=== PATIENT | female | born 1990 ===

== ENCOUNTER 2018-05-29 06:10 | Inpatient (IN) | payer OTHER ==
[~2018-05-29] VITALS: Ht 162.6 cm; Wt 102.1 kg
--- NOTE | 2018-05-29 06:14 | History & Physical ---
General Information and HPI MD Statement: I have seen and personally examined LEILANI RIZVI and documented this H&P. The patient is a 28 year old female at [39] weeks and 6[] days gestation who presented with a chief complaint of [plan to deliver by primary C/S.]. 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 Her testing has resulted in 2-3 NSTs that were nonreactive and one had 2 spontaneous variable decelerations. After discussing options of continued observation with twice weekly testing, labor induction with a floating vertex, or delivery by primary C/S, we decided on the last option. The risks, benefits, purpose, and alternatives of delivery by primary C/S were d/w the patient and her , questions answered, and informed consent was obtained. Allergies/Medications Allergies: Coded Allergies: No Known Allergies (05/29/18) Home Med list Pnv#67/Iron Ps/FA Cmb#1/Dha (Vitafol Ultra Softgel) 29 MG IRON-1 MG-200 MG CAPSULE VITAMIN SUPPORT (Reported) Compliance With Home Meds: GOOD Past History paper box cutter History : 1 Para: 0 Last Menstrual Period: 08-23-2017 Estimated Delivery Date: 05-30-18 Past paper box cutter History: none Medical History Blood Transfusion Hx: No Neurological: NONE EENT: NONE Cardiovascular: NONE Respiratory: NONE Gastrointestinal: NONE Hepatic: NONE Renal: kidney reflux disease, repaired in childhood Musculoskeletal: NONE Psychiatric: NONE Endocrine: obesity Blood Disorders: anemia Cancer(s): NONE COMPUTER TAPE LIBRARIAN/Reproductive: HPV Surgical History Pertinent Surgical History: kidney reflux disease correction 1997-age 8 Past Family/Social History Psychosocial History Where do you live? Home Who Do You Live With? spouse Primary Language: Italian Smoking Status: Never Smoked ETOH Use: denies use Illicit Drug Use: denies illicit drug use Living Will? unknown Power of Med Surg Rn/HCP? unknown Employment History Employment Employed Review of Systems Review of Systems Constitutional: Reports: no symptoms. EENTM: Reports: nasal congestion. Cardiovascular: Reports: peripheral edema. Respiratory: Reports: no symptoms. GI: Reports: constipation, distention, nausea. Genitourinary: Reports: frequency. Musculoskeletal: Reports: back pain. Skin: Reports: rash (on tops of feet). Neurological/Psychological: Reports: no symptoms. Hematologic/Endocrine: Reports: no symptoms. Immunologic/Allergic: Reports: no symptoms. All Other Systems: Reviewed and Negative Date of LMP: 08/23/17 Post Menopausal: No Mammogram Testing Status: Test never done Date of Last Pap Smear: 10/28/17 Colonoscopy Testing Status: Test never done Exam & Diagnostic Data Obstetric Exam Wgt Gained During : 46 lbs Pelvimetry: narrow pelvis Dilation (cm): 0 Effacement (%): 30 Station: -4 Membranes: intact Fluid: unknown Fundal Height (cm): 40 Multiple Gestation? No Contractions: rare Infant #1 - FHR Baseline: 140 Category: 1 Estimated Weight: 8.5 lbs Presentation: VTX Patient for Induction? No Rollins Score Rollins Score Response Value Cervix Position: posterior 0 Cervix Consistency: firm 0 Cervix Effacement: 0-30% 0 Cervix Dilation: closed 0 Cervix Station: -3 0 Total 0 Physical Exam General Appearance Alert, Oriented X3, Cooperative, No Acute Distress Skin No Rashes, No Significant Lesion HEENT Mucous Membr. moist/pink Neck Supple, No thryomegaly Lymphatic Cervical nl Cardiovascular Regular Rate Lungs Normal Air Movement Abdomen Normal Bowel Sounds, Soft, No Tenderness, No Hepatospenomegaly Neurological Normal Gait, Normal Speech, Normal Tone, Sensation Intact, Reflexes 2+ Extremities pedal edema 2+ bilat. Vascular Normal Pulses Breasts Breast appear nl Reproductive (FEMALE) Normal female genitalia Pelvic (FEMALE) Appearance Normal Rectal No Hemorrhoids Labs Blood Type & Rh: O+ Antibody Screen: neg Hct/Hgb & Platelets #1: 11.9/37%, 290K Hct/Hgb & Platelets #2: 10.9/36%, 295K Rubella: immune VDRL #1: NR VDRL #2: NR HbsAg: NR HIV #1: NR HIV #2 NR 1 Hr P Group B Strep: POS Initial Ultrasound: 10/29/17 - 9w3d Anatomy Ultrasound: 01/13/18 - 20w3d, normal anatomy, proportional growth Ultrasound for EFW: 05/05/18 - 36w3d - EFW 64%, ELDER 17 Genetic Testing: normal 1st TMS, normal Counsyl Prelude MSAFP declined Last 24 Hrs of Labs/[place]: Laboratory Tests 05/30/18 0640: CBC w Diff NO MAN DIFF REQ, RBC 3.64 L, MCV 81.9, MCH 27.6, MCHC 33.8, RDW 16.0 H, MPV 9.2, Gran % 80.7 H, Lymphocytes % 11.9 L, Monocytes % 6.7, Eosinophils % 0.5, Basophils % 0.2, Absolute Granulocytes 9.1 H, Absolute Lymphocytes 1.3, Absolute Monocytes 0.8 H, Absolute Eosinophils 0.1, Absolute Basophils 0 Assessment/Plan As Ranked By This Provider Problem List: 1. Polyhydramnios Assessment/Plan Idiopathic, plan - deliver by 40w 2. [place] with nonreactive heart rate prior to Assessment/Plan few NR NSTs, vatriable decelerations, all BPPs normal Plan - deliver today 3. Presenting part of fetus ballottable Assessment/Plan vertex floating Plan - deliver by primary C/S 4. LGA (large for gestational age) fetus Assessment/Plan EFW 8-9 lbs 5. 39 weeks gestation of Assessment/Plan very reliable dating 6. Maternal obesity syndrome, antepartum Assessment/Plan 50-lb weight gain this 7. GBS carrier Assessment/Plan membranes intact, no labor Core Measures Venous Thromboembolism VTE Risk Factors / No Mechanical VTE Prophylaxis d/t Other (ALPS ordered) No VTE Pharm Prophylaxis d/t Other (Lovenox ordered) Attending MD Review Statement Attending Statement Attending MD Statement: examined this patient, discussed with family, reviewed EMR data (avail), discussed w/nursing
[2018-05-29 06:43] VITALS: BP 113/62
--- NOTE | 2018-05-29 10:12 | Operative Report ---
Operative/Inv Procedure Report Surgery Date: 05/29/18 Name of Procedure: Primary C/S Pre-Operative Diagnosis: Polyhydramnios, unengaged presenting part Post-Operative Diagnosis: same with arcuate uterus Estimated Blood Loss: 700cc Surgeon/Veterinary Technology Instructor: Esau NGUYEN,Caleb Rayo MD Anesthesia: block Monitors: for vitals per anesthesia IV Fluids: LR Urine Output: 500cc, clear Drains: Cisneros Specimens: cord bloods Microbiology: UC sent on Cisneros insertion Complications: none Condition: very good Operative Indication: morbidity prevention Operative/Procedure Note Note: Ms. Albarado was walked into the OR, she sat up on the OR table while the spinal block was placed, then she was placed in the dorsal supine position with a left lateral tilt. A Cisneros catheter was inserted aseptically and the abdomen was prepped and draped in the usual fashion. The level of anesthesia was checked and assured. The skin of the lower abdominal wall was incised with a scalpel along her old low transverse incision scar. Cautery was used to incise through the subcutaneous tissue maintaining hemostasis. The rectus fascia was nicked on each side of the linea alba and incised sharply in a curvilinear fashion. The superior and inferior median raphes were incised, the rectus muscles were incised sharply in the midline, the peritoneum was identified, elevated, and entered bluntly high above the bladder, and the peritoneal incision was extended superiorly and inferiorly with good bladder visualization. The uterus was palpated for rotation. A bladder flap was created with sharp dissection, then bluntly enlarged. The bladder blade was placed at the lower aspect of the incision, Metzenbaum scissors were used to incise the myometrium of the lower uterine segment in a transverse fashion, and the uterine incision was extended bluntly. Membranes ruptured and copious amounts of light meconium-stained amniotic fluid gushed from the uterine cavity. The vertex was unengaged in the LOT position, a hand was gently pllaced under the vertex to maintain flexion, gentle pressure was placed over the uterine fundus, and the vertex was gradually delivered from the uterine incision. Mouth and nose were suctioned, the face was cleaned with a lap pad, active limb movements and spontaneous cry were noted, and the infant was handed off the field to the Pediatric team in attendance. The placenta was delivered spontaneously with gentle traction on the cord and care was taken to allow all membranes to separate from the endometrium. The uterus was exteriorized, the uterine cavity was cleaned of any leftover membrane with a dry lap pad, 10mu of Pitocin were directly injected into the myometrium, the uterus was wrapped in a moist lap pad , and the angles of the uterine incision were grasped with T-clamps. All major bleeding vessels were clamped. The uterine incision was then closed in 2 layers with #1.0 chromic suture; the first layer a running locking stitch and the second layer a running imbricating stitch. Additional figure-8 sutures were placed to achieve complete hemostasis of the uterine incision. The bladder flap was closed with a running stitch of 2.0 chromic suture. Retractors were removed , the cul-de-sac was irrigated and cleaned of clots, the adnexa were inspected and found to be normal, the uterus was gently returned to the peritoneal cavity, the gutters were cleaned of clots, and the uterine incision was carefully re- inspected and found to be hemostatic. A surgical sweep was done - negative. Counts were correct. The parietal peritoneum was grasped with Lea clamps and the closed with a running stitch of 2.0 Vicryl. The rectus muscles were reapproximated in the midline with interrupted figure-8 sutures of 2.0 Vicryl. Hemostasis was reevaluated and found to be good. The rectus fascia was closed in a running fashion with #1.0 Vicryl suture from each corner to the midline. The subcutaneous tissue was well irrigated, hemostasis was ensured with cautery, and the subcutaneous tissue was closed with interrupted sutures of 2.0 plain. There was good hemostasis. The skin was closed with a subcuticular stitch of 4.0 Vicryl on a Joby needle. The wound was hemostatic, was cleaned and dried, steri-strips and a sterile dressing were applied. The instrument, needle, sponge, and lap pad counts were correct X2 at the end of the procedure. The patient was tranferred to recovery in good condition. Findings: single viable male "Tera", 9,9, weight 8#, from the LOT position, AF abundant, stained throughout with light meconium, with after coming thick dark sticky meconium, cord trivascular, NO nuchal cord, placenta intact, uterus markedly enlarged, arcuate in shape without a palpable uterine septum, the lower segment was thick, both tubes and ovaries were normal by inspection, the pelvic peritoneal surfaces were normal. The pelvic inlet felt narrow. Discharge Disposition: CBC CC: Christi NGUYEN,Caleb Irving
[2018-05-30 09:18] LABS: ABSOLUTE BASOPHIL COUNT 0 /CUMM (0.0-0.2); ABSOLUTE LYMPH COUNT 1.3 /CUMM (1.2-3.4); MEAN CORPUSCULAR VOLUME 81.9 FL (81.0-99.0)
[2018-05-30 09:28] LABS: ABSOLUTE EOSINOPHIL COUNT 0.1 /CUMM (0.0-0.7); ABSOLUTE GRANULOCYTE CT 9.1 /CUMM (1.4-6.5); ABSOLUTE MONOCYTE COUNT 0.8 /CUMM (0.10-0.60); BASOPHIL % 0.2 % (0.0-2.0); EOSINOPHIL % 0.5 % (0-5); GRANULOCYTE % 80.7 % (42.2-75.2); MEAN CORPUSCULAR HGB 27.6 PG (27.0-31.0); MEAN CORPUSCULAR HGB CONC 33.8 G/DL (33.0-37.0); MEAN PLATELET VOLUME 9.2 FL (7.4-10.4); PLATELET COUNT 218 /CUMM (130-400); RED BLOOD CELL CT 3.64 /CUMM (4.20-5.40); WHITE BLOOD CELL COUNT 11.3 /CUMM (4.8-10.8)
[2018-05-30 09:29] LABS: HEMATOCRIT 29.8 % (37-47)
--- NOTE | 2018-05-30 15:51 | PN- OBGYN ---
Surgical Brief Attending Note Brief Attending Note: pt feeling well. +bf. amb / void / jackelin po. +flatus. no bm. no n/v/cp/sob. pain well controlled. afeb, v/ss nad abd soft nt ff nd inc c/d/i w/ dk bld dried on steris jaylan min lochia ext +1 b/l le ed hct 29 a/p pod 1 s/p c/s, doing well -cont routine pop care -oob / amb -pain mgmt
[2018-05-30] MEDS ORDERED: VITAFOL ULTRA1 EACH (20:14)
--- NOTE | 2018-05-31 16:55 | PN- OBGYN ---
Surgical Brief Attending Note Brief Attending Note: pt feeling well. amb / void / jackelin po. +flatus. no bm. +bf. pain well controlled afeb, v/ss nad abd soft nt nd ff inc c/d/i jaylan min lochia ext nt +2 b/l le ed A/P pod 2 s/p c/s, doing well -d/c home w/ f/u 2 wks -post-op instructions rev -rx motrin and percs
== END 2018-06-01 11:00 | DRG 766 ==
LOC: GNO 06:10
PROVIDERS: Obstetrics & Gynecology
PROC: 10D00Z1 Extraction of Products of Conception, Low, Open Approach (ICD-10-PCS; principal; 2018-05-29)
DX: O40.3XX0 Polyhydramnios, third trimester, not applicable or unspecified (principal); Z3A.39 39 weeks gestation of pregnancy; Z37.0 Single live birth; O36.63X0 Maternal care for excessive fetal growth, third trimester, not applicable or unspecified; O77.0 Labor and delivery complicated by meconium in amniotic fluid; O99.824 Streptococcus B carrier state complicating childbirth; O99.214 Obesity complicating childbirth; O76 Abnormality in fetal heart rate and rhythm complicating labor and delivery; O99.02 Anemia complicating childbirth
CPT/HCPCS: GNOS; 36415; 87086; 87389; J0690; J1200; J1650; J1885; J7120